=== PATIENT | female | born 1960 | race Caucasian/White ===

== ENCOUNTER 2017-10-27 17:41 | Emergency (ER) | payer BC, OTHER ==
[~2017-10-27] VITALS: Ht 157.5 cm; Wt 54.7 kg
[2017-10-27] MEDS ORDERED: ARMOUR THYROID120 M1 PO (17:51)
[2017-10-27] MEDS ORDERED: FLEXERIL PO (19:19)
[2017-10-27] MEDS ORDERED: NAPROSYN500 MG PO (19:19)
[2017-10-27 19:34] VITALS: BP 129/57
== END 2017-10-27 19:35 | disposition home or self-care (01) ==
LOC: M.ERS 17:41
DX: R07.89 Other chest pain (principal); M79.672 Pain in left foot; M54.2 Cervicalgia; E03.9 Hypothyroidism, unspecified; Z88.0 Allergy status to penicillin; V49.09XA Driver injured in collision with other motor vehicles in nontraffic accident, initial encounter; Y93.89 Activity, other specified; Y92.89 Other specified places as the place of occurrence of the external cause; Y99.8 Other external cause status

== ENCOUNTER 2018-09-29 15:23 | Emergency (ER) | payer BC ==
[~2018-09-29] VITALS: Ht 157.5 cm; Wt 58.1 kg
[~2018-09-29 15:23] MED LIST: ARMOUR THYROID120 M1 PO; FLEXERIL PO; NAPROSYN500 MG PO
[2018-09-29] MEDS ORDERED: SYNTHROID100 MC1 PO (15:30)
[2018-09-29] MEDS ORDERED: LEVO-T100 MCG PO (15:31)
[2018-09-29] MEDS ORDERED: PREDNISONE 20 M20 MG PO (16:39)
[2018-09-29 16:52] VITALS: BP 114/72
== END 2018-09-29 16:52 | disposition home or self-care (01) ==
LOC: M.ERS 15:23
DX: T78.40XA Allergy, unspecified, initial encounter (principal); E03.9 Hypothyroidism, unspecified; Z88.0 Allergy status to penicillin

== ENCOUNTER 2020-10-21 10:04 | Emergency (ER) | payer BC ==
[~2020-10-21] VITALS: Ht 157.5 cm; Wt 61.2 kg
[~2020-10-21 10:04] MED LIST changes: +LEVO-T100 MCG PO; +PREDNISONE 20 M20 MG PO; +SYNTHROID100 MC1 PO
[2020-10-21] MEDS ORDERED: TESSALON PERLE100 MG PO (10:35)
[2020-10-21] MEDS ORDERED: PROMETHAZI6.25 MG/5 PO (10:35)
[2020-10-21] MEDS ORDERED: MEDROLDOSEPACK PO (10:37)
[2020-10-21 10:46] VITALS: BP 103/69
--- NOTE | 2020-10-21 11:20 | EKG ---
[place] [address] ELECTROCARDIOGRAM REPORT Name: DEVAN BERNARD Room: [facility]#: [id number] Admission: 10/21/20 Attend Phys: Discharge: 10/21/20 Date of : 60 Date of Service: 10/21/20 1024 Report #: [id number] THIS REPORT FOR: //name// [facility] ED Test Date: 2020-10-21 Test Time: 10:24:38 Pat Name: DEVAN FERMIN Department: Room: Gender: F [employer]: : 1960 Requested By: Lizz Black Order Number: [id number] MD: Ilia Gardner Measurements Intervals [place] Rate: 76 P: -8 NC: 152 QRS: -13 QRSD: 86 T: -1 QT: 406 QTc: 457 Interpretive Statements Sinus rhythm Borderline T abnormalities, anterior leads No previous ECG available for comparison Electronically Signed On 10-21-2020 11:20:18 CDT by Ilia Gardner [email or web address] <ELECTRONICALLY SIGNED> By: Ilia Gardner MD, [facility] 10/21/20 1120 1024 1024 Ilia Gardner MD, [facility] /EPI
== END 2020-10-21 10:47 | disposition home or self-care (01) ==
LOC: M.ERS 10:04
DX: U07.1 COVID-19 (principal); E03.9 Hypothyroidism, unspecified; Z79.899 Other long term (current) drug therapy; Z88.0 Allergy status to penicillin